=== PATIENT | male | born 1975 | race Caucasian/White ===

== ENCOUNTER 2016-11-10 06:07 | Emergency (ER) | payer OTHER | END 2016-11-10 09:09 | disposition home or self-care (01) | LOC: ER 06:07 | DX: K43.9 Ventral hernia without obstruction or gangrene (principal); R10.9 Unspecified abdominal pain; R11.0 Nausea; Z79.891 Long term (current) use of opiate analgesic; Z85.528 Personal history of other malignant neoplasm of kidney; Z90.5 Acquired absence of kidney; F17.210 Nicotine dependence, cigarettes, uncomplicated; Z79.899 Other long term (current) drug therapy ==

== ENCOUNTER 2016-12-05 20:43 | Emergency (ER) | payer OTHER ==
[~2016-12-05 20:43] MED LIST: BACTRIM DS TAB1 EACH PO; CELEXA40 MG PO; HYDROCODON-ACE1 EAC6 PO; LEVAQUIN500 MG PO; MOTRIN600 MG PO; NEURONTIN400 MG PO; NEURONTIN600 MG PO; NICODERM 14MG PA1 EA TD; NORVASC5 MG PO; PEPCID20 MG PO; PROTONIX40 MG PO; VALIUM10 MG PO; ZESTRIL20 MG PO
[2016-12-05 21:48] LABS: BASO # 0.1 10_X3_uL (0.0-0.1); BASO % 0.5 % (0.2-1.2); EOS # 0.2 10_X3_uL (0.0-0.5); EOS % 1.9 % (0.8-7.0); GRAN # 5.9 10_X3_uL (1.8-5.4); GRAN % 62.7 % (34.0-67.9); HEMATOCRIT 44.7 % (40-51); HEMOGLOBIN 15.2 g/dL (13.7-17.5); LYMPH # 2.5 10_X3_uL (1.3-3.6); LYMPH % 26.3 % (21.8-53.1); MEAN CORPUSCULAR VOLUME 91.2 fL (79-92); MEAN PLATELET VOLUME 10.3 fl (7.5-11.5); MONO # 0.8 10_X3_uL (0.3-0.8); MONO % 8.6 % (5.3-12.2); PLATELET COUNT 195 x10_3/uL (163-337); RED CELL DISTRIBUTION WIDTH 13.5 % (11.6-14.4); WHITE BLOOD COUNT 9.3 x10_3/uL (4.2-9.1)
[2016-12-05 22:04] LABS: URINE BILIRUBIN NEGATIVE (NEGATIVE); URINE BLOOD NEGATIVE (NEGATIVE); URINE GLUCOSE (UA) NORMAL (NORMAL); URINE KETONE NEGATIVE (NEGATIVE); URINE LEUKOCYTE ESTERASE NEGATIVE (NEGATIVE); URINE NITRATE NEGATIVE (NEGATIVE); URINE PROTEIN NEGATIVE (NEGATIVE); UROBILINOGEN NORMAL mg/dL (<1.0)
[2016-12-05 22:04] LABS: ALBUMIN 4.1 gm/dL (3.4-5.0); ALKALINE PHOSPHATASE 85 U/L (50-136); ALT/SGPT 28 U/L (7.53-40.17); AST/SGOT 20 U/L (6.66-35.34); BILIRUBIN,TOTAL 0.28 mg/dL (0.0-1.0); BLOOD UREA NITROGEN 10 mg/dL (7-18); CARBON DIOXIDE 26 mmol/L (21-32); CREATININE 1.1 mg/dL (0.6-1.3); GLUCOSE,RANDOM 118 mg/dL (70-99); LIPASE 17 U/L (6.75-60.75); POTASSIUM 3.9 mmol/L (3.5-5.1); SODIUM 139 mmol/L (136-145); TOTAL PROTEIN 6.8 gm/dL (6.4-8.2)
== END 2016-12-06 00:15 | disposition home or self-care (01) ==
LOC: ER 20:43
PROVIDERS: Internal Medicine
DX: K43.9 Ventral hernia without obstruction or gangrene (principal); R10.31 Right lower quadrant pain; R10.33 Periumbilical pain; Z85.528 Personal history of other malignant neoplasm of kidney; Z90.5 Acquired absence of kidney; F17.210 Nicotine dependence, cigarettes, uncomplicated; Z79.891 Long term (current) use of opiate analgesic; Z79.899 Other long term (current) drug therapy
CPT/HCPCS: 36415; 80053; 81003; 83605; 83690; 85025; 96374; 96375; 99284-25; J7040; Q9967

== ENCOUNTER 2016-12-08 00:33 | Emergency (ER) | payer OTHER ==
[2016-12-08 01:17] LABS: BASO # 0.1 10_X3_uL (0.0-0.1); BASO % 0.6 % (0.2-1.2); EOS # 0.2 10_X3_uL (0.0-0.5); EOS % 1.9 % (0.8-7.0); GRAN # 5.5 10_X3_uL (1.8-5.4); GRAN % 60.6 % (34.0-67.9); HEMATOCRIT 45.9 % (40-51); HEMOGLOBIN 15.9 g/dL (13.7-17.5); LYMPH # 2.5 10_X3_uL (1.3-3.6); LYMPH % 27.2 % (21.8-53.1); MEAN CORPUSCULAR HEMOGLOBIN 31.7 pg (27.0-33.0); MEAN CORPUSCULAR HGB CONC 34.6 g/dL (32.0-36.0); MEAN CORPUSCULAR VOLUME 91.6 fL (79-92); MEAN PLATELET VOLUME 10.5 fl (7.5-11.5); MONO # 0.9 10_X3_uL (0.3-0.8); MONO % 9.7 % (5.3-12.2); PLATELET COUNT 185 x10_3/uL (163-337); RED BLOOD COUNT 5.01 x10_6/uL (4.6-6.1); RED CELL DISTRIBUTION WIDTH 13.5 % (11.6-14.4); WHITE BLOOD COUNT 9.1 x10_3/uL (4.2-9.1)
[2016-12-08 01:29] LABS: ALBUMIN 3.8 gm/dL (3.4-5.0); ALKALINE PHOSPHATASE 83 U/L (50-136); ALT/SGPT 25 U/L (7.53-40.17); AST/SGOT 20 U/L (6.66-35.34); BILIRUBIN,TOTAL 0.28 mg/dL (0.0-1.0); BLOOD UREA NITROGEN 10 mg/dL (7-18); CALCIUM 8.8 mg/dL (8.7-10.7); CARBON DIOXIDE 27 mmol/L (21-32); CREATININE 1.1 mg/dL (0.6-1.3); GLUCOSE,RANDOM 97 mg/dL (70-99); LIPASE 19 U/L (6.75-60.75); POTASSIUM 4.1 mmol/L (3.5-5.1); SODIUM 141 mmol/L (136-145); TOTAL PROTEIN 6.7 gm/dL (6.4-8.2)
== END 2016-12-08 01:33 | disposition home or self-care (01) ==
LOC: ER 00:33
PROVIDERS: Emergency Medicine
DX: R10.9 Unspecified abdominal pain (principal); K43.9 Ventral hernia without obstruction or gangrene; Z76.5 Malingerer [conscious simulation]; I10 Essential (primary) hypertension; I51.9 Heart disease, unspecified; F17.210 Nicotine dependence, cigarettes, uncomplicated; Z85.528 Personal history of other malignant neoplasm of kidney; Z90.5 Acquired absence of kidney; Z79.899 Other long term (current) drug therapy; Z79.891 Long term (current) use of opiate analgesic
CPT/HCPCS: 36415; 80053; 83690; 85025; 99070; 99283

== ENCOUNTER → 2016-12-12 | Day surgery (SDC) | payer OTHER ==
[~2016-12-12] VITALS: Ht 185.4 cm; Wt 105.2 kg
== END ==
LOC: OPS 09:56
PROC: 0WUF0JZ Supplement Abdominal Wall with Synthetic Substitute, Open Approach (ICD-10-PCS; principal; 2016-12-12)
DX: K43.2 Incisional hernia without obstruction or gangrene (principal); I10 Essential (primary) hypertension; M15.9 Polyosteoarthritis, unspecified; R05 Cough; K21.9 Gastro-esophageal reflux disease without esophagitis; R10.13 Epigastric pain; F32.9 Major depressive disorder, single episode, unspecified; F17.210 Nicotine dependence, cigarettes, uncomplicated; J44.9 Chronic obstructive pulmonary disease, unspecified; Z88.8 Allergy status to other drugs, medicaments and biological substances; Z79.899 Other long term (current) drug therapy; Z79.810 Long term (current) use of selective estrogen receptor modulators (SERMs)
CPT/HCPCS: 94664; 99070; J2704; J2710; J3010